=== PATIENT | female | born 1975 | race African-American/Black ===

== ENCOUNTER → 2022-07-26 10:38 | Outpatient (CLI) | payer OTHER, SELFPAY ==
--- NOTE | ~2022-07-26 | MM_ITS ---
EXAMINATION: MM screening aishwarya BI w [facility] HISTORY: Screening mammogram TECHNIQUE: Craniocaudal and mediolateral oblique 3-D tomosynthesis images were obtained and synthetic 2-D images were generated. CAD analysis was submitted and interpreted. COMPARISON: 12/23/2017 bilateral screening mammogram BREAST PARENCHYMAL COMPOSITION: There are scattered areas of fibroglandular density. FINDINGS: Right breast: There is significant interval change with increased irregular density in the mid to upp er outer right breast with associated innumerable malignant appearing microcalcifications over a larg e area. Left breast: There is no evidence of suspicious mass, calcification, or architectural distortion to s uggest malignancy in the left breast. There has been no suspicious interval change. IMPRESSION: 1. Abnormal increased irregular density and innumerable extensive malignant appearing microcalcificat ions of the mid to upper outer right breast, highly suggestive of malignancy 2. Diagnostic right mammogram and right breast ultrasound examination are recommended BI-RADS Category 0: Incomplete: Needs additional imaging evaluation. Reviewed, dictated and finalized at location A. IMPRESSION: 1. Abnormal increased irregular density and innumerable extensive malignant katya earing microcalcifications of the mid to upper outer right breast, highly sugge stive of malignancy 2. Diagnostic right mammogram and right breast ultrasound examination are recom mended BI-RADS Category 0: Incomplete: Needs additional imaging evaluation.
== END ==
PROVIDERS: PCP Family Medicine Sports Medicine; Visit Provider Family Medicine Sports Medicine
DX: Z12.31 Encounter for screening mammogram for malignant neoplasm of breast (principal); R92.8 Other abnormal and inconclusive findings on diagnostic imaging of breast
CPT/HCPCS: 77063; 77067

== ENCOUNTER 2022-07-26 11:43 | Outpatient (CLI) | payer OTHER, SELFPAY ==
--- NOTE | 2022-07-26 | ECG_ITS ---
Measurements Intervals [place] Rate: 68 P: 55 [place]: 141 QRS: 60 QRSD: 89 T: 42 QT: 378 QTc: 403 Interpretive Statements SINUS RHYTHM NO PREVIOUS ECG AVAILABLE FOR COMPARISON Electronically Signed On 07-26-2022 13:01:34 CDT by Xi Ortiz M.D.
[2022-07-26 12:22] LABS: Basophils Percent Auto 0.4 % (0.2-1.2); Eosinophils Percent Auto 0.8 % (0-4.4); Hematocrit 37.1 % (37.0-47.0); Hemoglobin 11.9 g/dL (12.0-15.0); Immature Granulocyte Absolute 0.01 K/mm3 (0.00-0.031); Immature Granulocyte Percent A 0.4 % (0-0.5); Lymphocytes Absolute Auto 1.01 K/mm3 (0.9-3.2); Lymphocytes Percent Auto 39.5 % (18.3-44.2); Mean Corpuscular HGB Conc 32.1 g/dl (32-36); Mean Corpuscular Hemoglobin 27.9 pg (26-34); Mean Corpuscular Volume 86.9 fl (80-100); Mean Platelet Volume 9.9 fl (7.4-10.4); Monocytes Absolute Auto 0.4 K/mm3 (0.1-0.6); Monocytes Percent Auto 13.7 % (2.6-8.5); Neutrophils Absolute Auto 1.2 K/mm3 (1.3-6.7); Neutrophils Percent Auto 45.2 % (45.5-73.1); Platelet Count Result 208 k/mm3 (150-375); Red Blood Count 4.27 M/mm3 (4.2-5.4); White Blood Count 2.6 K/mm3 (4.5-10.0)
[2022-07-26 12:23] LABS: Appearance Urine Clear (Clear); Bilirubin Urine Negative (Negative); Blood Urine Negative (Negative); Color Urine Yellow (Yellow); Glucose Urine UA Negative (Negative); Ketones Urine Negative (Negative); Leukocyte Esterase Ur Negative LEU/UL (Negative); Nitrate Urine Negative (Negative); Protein Urine Negative (Negative); Specific Grav Ur 1.026 (1.001-1.035); pH Urine 5.5 (5.0-9.0)
[2022-07-26 12:27] LABS: Add Urine Microscopic? NO
[2022-07-26 12:32] LABS: D Dimer 1.19 ug/mL (<0.48)
[2022-07-26 12:35] LABS: Alanine Aminotransferase 20 U/L (6-35); Albumin Level 4.1 g/dL (3.5-5.1); Alkaline Phosphatase 60 U/L (38-126); Anion Gap 8 mmol/L (8-16); Aspartate Amino Transferase 26 U/L (14-36); Bilirubin,Total 0.5 mg/dL (0.2-1.3); Blood Urea Nitrogen 12 mg/dL (7-17); Calcium 9.4 mg/dL (8.4-10.2); Carbon Dioxide 24 mmol/L (22-30); Chloride 103 mmol/L (98-107); Cholesterol 156 mg/dL (0-200); Estimated Glomerular Filt Rate > 60; Glucose 83 mg/dL (65-110); HDL Direct 44 mg/dL; Potassium 4.1 mmol/L (3.4-5.0); Sodium 135 mmol/L (137-145); Triglycerides 85 mg/dL (<150)
[2022-07-26 12:45] LABS: LDL Cholesterol Direct 69 mg/dL
[2022-07-26 13:00] LABS: Free T4 Free Thyroxine 1.22 ng/mL (0.78-2.19)
[2022-07-26 13:36] LABS: Folic Acid 6.2 ng/mL (2.76->20)
== END 2022-07-26 11:44 | disposition home or self-care (01) ==
LOC: ANHLAB 11:45
PROVIDERS: PCP Family Medicine Sports Medicine; Visit Provider Family Medicine Sports Medicine
DX: Z00.00 Encounter for general adult medical examination without abnormal findings (principal); R07.9 Chest pain, unspecified
CPT/HCPCS: 36415; 80053; 80061; 81003; 82607; 82746; 84439; 84443; 85025; 85380; 93005

== ENCOUNTER 2023-03-15 13:11 | Emergency (ER) | payer OTHER, SELFPAY ==
[2023-03-15] VITALS (18 sets, daily range): BP systolic 104–116; BP diastolic 71–88; PULSE 73–104; RESP 13–20; TEMP 37.1; O2SAT 98–100
--- NOTE | 2023-03-15 14:39 | ED.GENADULT ---
HPI - General Adult General Chief complaint: Back Pain/Injury Stated complaint: i passed out Time Seen by Provider: 03/15/23 13:27 History of Present Illness HPI narrative: 47-year-old female presenting to the emergency department for evaluation after having a nosebleed earlier today. Patient is currently undergoing treatment for breast cancer and is getting chemotherapy at [facility]. Patient had her treatment on Friday and is due to have another treatment this coming Friday. patient states that the bleeding did resolve on its own but patient wanted to be evaluated due to her underlying health issues. Patient is also complaining bilateral shoulder pain which she states is her known neuropathy for which he takes gabapentin. Patient states her pain is worsened today. Patient denies any associated shortness of breath. Related Data Allergies Allergy/AdvReac Type Severity Reaction Status Date / Time No Known Allergies Allergy Verified 03/15/23 13:28 Review of Systems Review of Systems: All systems reviewed & are unremarkable except as noted in HPI and below Exam Narrative: APPEARANCE: Well appearing, no pain, no distress, well-nourished. HEAD: normocephalic, atraumatic. EYES: PERRLA/EOMI, conjunctivae clear. NOSE: Normal no drainage EARS:TMS clear with good light reflex. THROAT: Pharynx clear, no exudate. NECK: Supple. No adenopathy, no masses. RESPIRATORY: Airway patent, respirations nonlabored. Clear to auscultation bilaterally, no rales, rhonchi, wheezing. CARDIOVASCULAR: Regular rate and rhythm without murmurs rubs or gallops. ABDOMINAL: Soft, nontender, nondistended, normal bowel sounds MUSCULOSKELETAL: Moves all extremities. Strength/ROM intact, No edema, No calf tenderness. NEURO: Alert. Cranial nerves II through XII intact. Grossly intact SKIN: Warm, dry. Normal Color Course Course Emergency Course: 47-year-old female present to the ED for evaluation after having a nose bleed. Patient has a stable hemoglobin at 10.4. Patient has a normal platelet count. Normal PT and PTT. No significant abnormalities on her CMP. Patient was improved with the pain medication patient has had no active rebleeding. patient was encouraged to have close follow-up with ENT and patient was educated on how to control the nosebleed at home and on reasons to return to the emergency department. All questions concerns were addressed and patient was well-appearing at time of discharge. Vital Signs Vital signs: Vital Signs Temperature 98.8 F 03/15/23 13:15 Pulse Rate 104 H 03/15/23 13:15 Respiratory Rate 20 03/15/23 13:15 Blood Pressure 106/71 03/15/23 13:15 Pulse Oximetry 98 03/15/23 13:15 Temperature 98.8 F 03/15/23 13:15 Pulse Rate 76 03/15/23 16:44 Respiratory Rate 14 03/15/23 16:44 Blood Pressure 113/88 03/15/23 15:01 Pulse Oximetry 98 03/15/23 16:44 Oxygen Delivery Room Air 03/15/23 13:23 Medical Decision Making Differential Diagnosis Differential Diagnosis: Thrombocytopenia, epistaxis, anemia Vital Signs Vital Signs: Vital Signs Temperature 98.8 F 03/15/23 13:15 Pulse Rate 104 H 03/15/23 13:15 Respiratory Rate 20 03/15/23 13:15 Blood Pressure 106/71 03/15/23 13:15 Pulse Oximetry 98 03/15/23 13:15 Temperature 98.8 F 03/15/23 13:15 Pulse Rate 76 03/15/23 16:44 Respiratory Rate 14 03/15/23 16:44 Blood Pressure 113/88 03/15/23 15:01 Pulse Oximetry 98 03/15/23 16:44 Oxygen Delivery Room Air 03/15/23 13:23 Lab Data Lab results reviewed: Yes I reviewed the patient's lab results. 03/15/23 15:28 03/15/23 16:19 Labs: Lab Results 03/15/23 03/15/23 Range/Units 15:28 16:19 WBC 2.8 L (4.5-10.0) K/mm3 RBC 3.78 L (4.2-5.4) M/mm3 Hgb 10.4 L (12.0-15.0) g/dL Hct 34.1 L (37.0-47.0) % MCV 90.2 (80-100) fl MCH 27.5 (26-34) pg MCHC 30.5 L (32-36) g/dl RDW 19.3 H (11.5-14
[2023-03-15] MEDS: HYDROcodone/acetaminophen (*CRX) 5-325 MG TABLET 1 TAB PO (15:32)
[2023-03-15 15:46] LABS: Basophils Percent Auto 0.4 % (0.2-1.2); Eosinophils Percent Auto 1.1 % (0-4.4); Hematocrit 34.1 % (37.0-47.0); Hemoglobin 10.4 g/dL (12.0-15.0); Lymphocytes Absolute Auto 0.72 K/mm3 (0.9-3.2); Lymphocytes Percent Auto 25.8 % (18.3-44.2); Mean Corpuscular HGB Conc 30.5 g/dl (32-36); Mean Corpuscular Hemoglobin 27.5 pg (26-34); Mean Corpuscular Volume 90.2 fl (80-100); Mean Platelet Volume 11.7 fl (7.4-10.4); Monocytes Absolute Auto 0.2 K/mm3 (0.1-0.6); Monocytes Percent Auto 5.4 % (2.6-8.5); Neutrophils Absolute Auto 1.9 K/mm3 (1.3-6.7); Neutrophils Percent Auto 67.3 % (45.5-73.1); Platelet Count Result 240 k/mm3 (150-375); Red Blood Count 3.78 M/mm3 (4.2-5.4); Red Cell Distribution Width 19.3 % (11.5-14.5); White Blood Count 2.8 K/mm3 (4.5-10.0)
[2023-03-15 15:55] LABS: INR 0.9; Prothrombin Time 12.2 Seconds (11.1-14.7)
[2023-03-15 15:56] LABS: Partial Thromboplastin Time 26.8 SECONDS (22.3-36.8)
[2023-03-15 16:33] LABS: Alanine Aminotransferase 41 U/L (6-35); Albumin Level 3.8 g/dL (3.5-5.1); Alkaline Phosphatase 96 U/L (38-126); Anion Gap 6 mmol/L (8-16); Aspartate Amino Transferase 46 U/L (14-36); Bilirubin,Total 0.6 mg/dL (0.2-1.3); Blood Urea Nitrogen 9 mg/dL (7-17); Calcium 9.9 mg/dL (8.4-10.2); Carbon Dioxide 24 mmol/L (22-30); Chloride 108 mmol/L (98-107); Estimated CRCL calculation 100 ml/min; Estimated Glomerular Filt Rate > 60; Glucose 88 mg/dL (65-110); Potassium 4.2 mmol/L (3.4-5.0); Sodium 138 mmol/L (137-145)
== END 2023-03-15 17:04 | disposition home or self-care (01) ==
PROVIDERS: Emergency Provider Emergency Medicine; PCP Family Medicine Sports Medicine
DX: R04.0 Epistaxis (principal); C50.919 Malignant neoplasm of unspecified site of unspecified female breast; Z79.60 Long term (current) use of unspecified immunomodulators and immunosuppressants
CPT/HCPCS: 36415; 80053; 85025; 85610; 85730; 99283; A9270